=== PATIENT | female | born 1980 | race Two or more races ===

== ENCOUNTER 2019-08-25 13:47 | Emergency (ER) | payer OTHER ==
[~2019-08-25] VITALS: Ht 167.6 cm; Wt 71.7 kg
[2019-08-25 13:55] VITALS: BP 135/84
== END 2019-08-25 16:45 | disposition home or self-care (01) ==
LOC: ER 13:47
DX: H92.01 Otalgia, right ear (principal); M54.2 Cervicalgia
CPT/HCPCS: 70360-TC